=== PATIENT | female | born 1975 | race Two or more races ===

== ENCOUNTER 2025-06-27 15:17 | Emergency (ER) | payer MEDICAID, OTHER ==
[~2025-06-27] VITALS: Ht 162.6 cm; Wt 79.6 kg
[2025-06-27 16:40] LABS: Hematocrit 41.8 % (36.0-46.0); Hemoglobin 14.2 g/dL (12.2-16.2); Mean Corpuscular Hemoglobin 29.5 pg (28.0-32.0); Mean Corpuscular Volume 87.1 fL (80.0-100.0); Nucleated Red Blood Cells % 0.0 %
--- NOTE | 2025-06-27 16:46 | DVH ---
CHEST RADIOGRAPH Indication: ble edema Technique: Single frontal view of the chest was obtained Comparison: None FINDINGS: Lines and Tubes: None Lungs: No focal consolidation. Pleura: No effusion. No pneumothorax. Cardiomediastinal contours: Unremarkable Bones: No acute osseous abnormality. IMPRESSION: 1. No acute cardiopulmonary disease.
[2025-06-27 16:54] LABS: Albumin 4.2 g/dL (3.2-4.8); Alkaline Phosphatase 71 U/L (46-116); Anion Gap 7 (5-15); BUN/Creatinine Ratio 11.8 (10.0-20.0); Bilirubin, Total 0.3 mg/dL (0.2-1.0); Calcium 9.1 mg/dL (8.7-10.4); Carbon Dioxide 26 mmol/L (20-31); Chloride 107 mmol/L (98-107); Glucose 91 mg/dL (74-106); Potassium 4.0 mmol/L (3.5-5.1); Sodium 140 mmol/L (136-145); Total Protein 6.6 g/dL (5.7-8.2)
[2025-06-27 16:55] LABS: Alanine Aminotransferase 55 U/L (7-40); Blood Urea Nitrogen 8 mg/dL (9-23)
--- NOTE | 2025-06-27 17:10 | ED.PDOC ---
Musculoskeletal HPI Comments 50 y/o F with history of anxiety and cholecystectomy presents with c/c bilateral lower leg swelling and numbness, with associated shortness of breath. Patient states symptoms started yesterday. She denies any change in activity, chest pain, fever, dizziness, syncope or other symptoms. 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 Moist mucous membranes.) Neck: Full Range of Motion, Normal Inspection Respiratory: Lungs Clear, No Accessory Muscle Use, No Respiratory Distress, Normal Breath Sounds Cardiovascular: No JVD, Regular Rate/Rhythm Breast Exam: Deferred Gastrointestinal: Non Tender, Soft Genitalia: Deferred Pelvic: Deferred Rectal: Deferred Extremities: Leg edema (Bilateral ankles), Normal range of motion, Non-tender, Pedal edema Neurologic: Alert (Oriented x4), Normal Affect, Normal Mood, Other (Ambulatory) Cerebellar Function: NOT DONE Reflexes: NOT DONE Skin: Dry, Normal Color, Warm Lymphatic: NOT DONE Was a procedure done? Was a procedure done?: No Differential Diagnosis EXT Differential Diagnosis: Cellulitis, CHF, Deep Vein Thrombosis, Neurovascular injury, Arthritis, Bursitis Other Differential Diagnosis Kidney disease, liver disease, venous insufficiency, among others X-Ray, Labs, Meds, VS Vital Signs Date Time Temp Pulse Resp B/P (MAP) Pulse Ox O2 Delivery O2 Flow Rate FiO2 06/27/25 20:57 101/63 06/27/25 20:50 97.6 62 18 101/63 (76) 97 97.6 06/27/25 20:50 Room Air* 0 21 06/27/25 15:19 98.1 68 18 103/47 97 98.1 Lab Test 06/27/25 18:12 06/27/25 17:37 06/27/25 16:26 Range/Units Urine Color Light-yellow Yellow Urine Clarity Clear Clear Urine pH 5.0 5.0-9.0 Urine Specific [place] 1.017 1.001-1.035 Urine Protein Negative Negative Urine Ketones Negative Negative Urine Blood Negative Negative /uL Urine Nitrite Negative Negative Urine Bilirubin Negative Negative Urine Urobilinogen Normal Negative mg/dL Urine Leukocyte Esterase Negative Negative /uL Urine RBC <1 0 - 4 /hpf Urine Microscopic WBC 1 0-5 /HPF Urine Squamous Epithelial Cells Few <5 /hpf Urine Calcium Oxalate Crystals Few None Seen Urine Bacteria None seen None Seen /hpf Urine Mucus Few None Seen Urine Glucose Normal Normal mg/dL Urine Test Negative Negative Troponin I High Sensitivity < 3 L < 3 L </=34 ng/L White Blood Count 6.4 4.4-10.8 10^3/uL Red Blood Count 4.81 4.0-5.20 10^6/uL Hemoglobin 14.2 12.2-16.2 g/dL Hematocrit 41.8 36.0-46.0 % Mean Corpuscular Volume 87.1 80.0-100.0 fL Mean Corpuscular Hemoglobin 29.5 28.0-32.0 pg Mean Corpuscular Hemoglobin Concent 33.8 32.0-36.0 g/dL Red Cell Distribution Width 13.5 11.8-14.3 % Platelet Count 305 140-450 10^3/uL Mean Platelet Volume 8.0 6.9-10.8 fL Neutrophils (%) (Auto) 65.8 37.0-80.0 % Lymphocytes (%) (Auto) 24.9 10.0-50.0 % Monocytes (%) (Auto) 5.8 0.0-12.0 % Eosinophils (%) (Auto) 3.0 0.0-7.0 % Basophils (%) (Auto) 0.5 0.0-2.0 % Neutrophils # (Auto) 4.3 1.6-8.6 10 ^3/uL Lymphocytes # (Auto) 1.6 0.4-5.4 10 ^3/uL Monocytes # (Auto) 0.4 0-1.3 10 ^3/uL Eosinophils # (Auto) 0.2 0-0.8 10 ^3/uL Basophils # (Auto) 0 0-0.2 10 ^3/uL Nucleated Red Blood Cells 0.0 % Sodium Level 140 136-145 mmol/L Potassium Level 4.0 3.5-5.1 mmol/L Chloride Level 107 98-107 mmol/L Carbon Dioxide Level 26 20-31 mmol/L Anion Gap 7 5-15 Blood Urea Nitrogen 8 L 9-23 mg/dL Creatinine 0.68 0.550-1.02 mg/dL Glomerular Filtration Rate Calc 105 >90 mL/min BUN/Creatinine Ratio 11.8 10.0-20.0 Serum Glucose 91 74-106 mg/dL Calcium Level 9.1 8.7-10.4 mg/dL Total Bilirubin 0.3 0.2-1.0 mg/dL Aspartate Amino Transferase (AST) 34 13-40 U/L Alanine Aminotransferase (ALT) 55 H 7-40 U/L Alkaline Phosphatase 71 46-116 U/L B-Type Natriuretic Peptide 75.78 0-100 pg/mL Total Protein 6.6 5.7-8.2 g/dL Albumin 4.2 3.2-4.8 g/dL Current Medications Medications (Trade) Dose Ordered Sig/Josh Route Start Time Stop Time Status Last Admin Furosemide (Lasix Tablet) 20 mg ONCE ONCE PO 06/27/25 20:45 06/27/25 20:46 DC 06/27/25 20:57 [place] [id number] Ph: [phone] DIAGNOSTIC IMAGING Diagnostic Imaging Report : [id number] Signed PATIENT: MANUEL ULLOA ACCT: [id number] UNIT: [id number] : 1975 LOC: ER ROOM / BED: / AGE / SEX: 50 / F ADM STATUS: REG ER SERVICE 1558 ORDERING PHYSICIAN: BRIGID BERNAL MD PROCEDURE(s): BLDVT - BiLat Lower DVT REASON: ble edema ORDER NUMBER(s): [id number], ACCESSION NUMBER(s): [id number] Bilateral lower extremity venous duplex Clinical History: ble edema Comparison: None Technique: Duplex Doppler evaluation of the deep venous systems of both lower extremities from the common femoral veins to the popliteal veins including color Doppler and spectral/pulsed waveform analysis was performed. Findings: RIGHT SIDE: The common femoral vein demonstrates appropriate compressibility and waveform variability. There is compressibility/patency of the great saphenous vein at the proximal thigh. The femoral vein demonstrates appropriate compressibility and waveform variability. The deep femoral vein demonstrates appropriate compressibility and waveform variability. The popliteal vein demonstrates appropriate compressibility and waveform variability. There is normal compressibility at the tibioperoneal trunk. LEFT SIDE: The common femoral vein demonstrates appropriate compressibility and waveform variability. There is compressibility/patency of the great saphenous vein at the proximal thigh. The femoral vein demonstrates appropriate compressibility and waveform variability. The deep femoral vein demonstrates appropriate compressibility and waveform variability. The popliteal vein demonstrates appropriate compressibility and waveform variability. There is normal compressibility at the tibioperoneal trunk. Impression: 1. No right or left femoropopliteal venous thrombosis. ATED BY: JAMEE SHAH Jr., DO DICTATED DATE/TIME: 06/27/251722 SIGNED BY: JAMEE SHAH Jr., DO SIGNED DATE/TIME: 06/27/251722 CC: [place] [id number] Ph: [phone] DIAGNOSTIC IMAGING Diagnostic Imaging Report : [id number] Signed PATIENT: MANUEL ULLOA ACCT: [id number] UNIT: [id number] : 1975 LOC: ER ROOM / BED: / AGE / SEX: 50 / F ADM STATUS: REG ER SERVICE 1558 ORDERING PHYSICIAN: BRIGID BERNAL MD PROCEDURE(s): CXRP - CHEST PORTABLE REASON: ble edema ORDER NUMBER(s): [id number], ACCESSION NUMBER(s): [id number] CHEST RADIOGRAPH Indication: ble edema Technique: Single frontal view of the chest was obtained Comparison: None FINDINGS: Lines and Tubes: None Lungs: No focal consolidation. Pleura: No effusion. No pneumothorax. Cardiomediastinal contours: Unremarkable Bones: No acute osseous abnormality. IMPRESSION: 1. No acute cardiopulmonary disease. ATED BY: JAMEE SHAH Jr., DO DICTATED DATE/TIME: 06/27/25 1644 SIGNED BY: JAMEE SHAH Jr., DO SIGNED DATE/TIME: 06/27/25 3877 CC: X-Ray, Labs, Meds, VS Comment 50 y/o F with history of anxiety and cholecystectomy presents with c/c bilateral lower leg swelling and numbness, with associated shortness of breath. Vitals remarkable for BP 103/47 Exam remarkable for bilateral foot and ankle nonpitting edema Rhythm strip independently interpreted by me: Sinus rhythm, rate 68, no ectopy. Chest x-ray unremarkable Bilateral lower extremity ultrasound negative for DVT CBC, CMP, BNP and troponin unremarkable. UA urine unremarkable Patient treated with the following in the ED: Lasix 20 mg p.o. Hospitalization was considered, however patient was not short of breath on re- evaluation, was ambulatory without difficulty, workup is unremarkable for CHF, fluid overload, kidney disease, severe liver disease or other serious cause of lower extremity edema. I no longer feel hospitalization is necessary patient appears stable for discharge with close outpatient follow-up with her primary doctor. Advised to keep legs elevated and were compression stockings. Time of 1ST Reevaluation: 17:20 Reevaluation 1ST: Unchanged Patient Education/Counseling: Diagnosis, Treatment Family Education/Counseling: No Family Present Departure 1 Departure Time of Disposition: 20:38 Impression: Primary Impression: Lower extremity edema Disposition: 01 HOME / SELF CARE / HOMELESS Condition: Stable Additional Instructions: Your blood tests, including screening test for heart failure, kidney disease and liver disease, all of which can cause leg swelling, were unremarkable. Your urine test was unremarkable. Your ultrasound showed no blood clots. Your leg swelling may be due to vein insufficiency or dietary salt intake. Consider wearing compression stockings and elevating your legs as much as possible in order to alleviate the swelling. Follow-up with your primary doctor in 1-2 days. Return to ER for persistent or worsening symptoms. Discharged With: Relative Critical Care Note Critical Care Time?: No Stability Stability form required: No Heart Score Heart Score: Heart Score Response (Comments) Value History N/A 0 EKG N/A 0 Age N/A 0 Risk Factors N/A 0 Troponin N/A 0 Total 0 I personally scribed for BRIGID BERNAL MD ([email or web address]) on 06/27/25 at 17:10. Electronically submitted by Josep Ann ([email or web address]). I personally scribed for BRIGID BERNAL MD ([email or web address]) on 06/27/25 at 17:46. Electronically submitted by Josep Ann ([email or web address]). BRIGID BERNAL MD Jun 27, 2025 17:10
--- NOTE | 2025-06-27 17:25 | DVH ---
Bilateral lower extremity venous duplex Clinical History: ble edema Comparison: None Technique: Duplex Doppler evaluation of the deep venous systems of both lower extremities from the common femora l veins to the popliteal veins including color Doppler and spectral/pulsed waveform analysis was perf ormed. Findings: RIGHT SIDE: The common femoral vein demonstrates appropriate compressibility and waveform variability. There is compressibility/patency of the great saphenous vein at the proximal thigh. The femoral vein demonstrates appropriate compressibility and waveform variability. The deep femoral vein demonstrates appropriate compressibility and waveform variability. The popliteal vein demonstrates appropriate compressibility and waveform variability. There is normal compressibility at the tibioperoneal trunk. LEFT SIDE: The common femoral vein demonstrates appropriate compressibility and waveform variability. There is compressibility/patency of the great saphenous vein at the proximal thigh. The femoral vein demonstrates appropriate compressibility and waveform variability. The deep femoral vein demonstrates appropriate compressibility and waveform variability. The popliteal vein demonstrates appropriate compressibility and waveform variability. There is normal compressibility at the tibioperoneal trunk. Impression: 1. No right or left femoropopliteal venous thrombosis.
[2025-06-27 20:50] VITALS: BP 101/63; PULSE 62; RESP 18; TEMP 97.6; O2SAT 97
[2025-06-27 20:56] LABS: Urine Protein, UAD Negative (Negative)
[2025-06-27] MEDS: FUROSEMIDE 40 MG TAB PO ONE (20:57)
== END 2025-06-27 21:55 | disposition home or self-care (01) ==
LOC: ER 15:17
DX: R60.0 Localized edema (principal); F41.9 Anxiety disorder, unspecified; Z90.49 Acquired absence of other specified parts of digestive tract
CPT/HCPCS: 36415; 71045; 80053; 81001; 81025; 83880; 84484; 85025; 93970